=== PATIENT | male | born 1985 | race African-American/Black ===

== ENCOUNTER 2019-10-14 01:23 | Emergency (ER) | payer MEDICARE, MEDICAID ==
[~2019-10-14] VITALS: Ht 172.7 cm; Wt 97.0 kg
[2019-10-14] MEDS ORDERED: HALOPERIDOL LACTATE 5MG/ML VIAL IM STA (02:40)
[2019-10-14] MEDS ORDERED: LORAZEPAM 2MG/ML CPJ IM STA (02:40)
[2019-10-14 02:56] LABS: CLARITY URINE CLEAR (CLEAR); COLOR URINE YELLOW (YELLOW); KETONES URINE 3+ (NEGATIVE); LEUKOCYTE ESTERASE URINE NEGATIVE (NEGATIVE); NITRITE URINE NEGATIVE (NEGATIVE); OCCULT BLOOD URINE NEGATIVE (NEGATIVE); PROTEIN URINE TRACE (NEGATIVE); SPECIFIC GRAVITY URINE 1.019 (1.005-1.030)
[2019-10-14 03:03] LABS: CHLORIDE 102 mEq/L (98-107)
[2019-10-14 03:05] LABS: *AMPHETAMINES SCREEN URINE PRESUMTIVE POSITIVE (NEGATIVE); *BARBITURATES SCREEN URINE NEGATIVE (NEGATIVE); *BENZODIAZEPINES SCREEN URINE NEGATIVE (NEGATIVE); *COCAINE SCREEN URINE NEGATIVE (NEGATIVE); METHADONE URINE SCREEN NEGATIVE (NEGATIVE)
[2019-10-14 03:07] LABS: ETHANOL BLOOD < 10 mg/dL
[2019-10-14 03:07] LABS: CANNABINOID URINE SCREEN PRESUMTIVE POSITIVE (NEGATIVE); OPIATES URINE SCREEN NEGATIVE (NEGATIVE); PHENCYCLIDINE URINE SCREEN NEGATIVE (NEGATIVE)
[2019-10-14 03:15] LABS: BASOPHILS % 0.4 % (0.0-2.0); EOSINOPHILS % 0.5 % (0.0-5.0); HEMATOCRIT. 42.3 % (42.0-52.0); HEMOGLOBIN. 14.5 g/dL (14.0-18.0); LYMPHOCYTES % 17.9 % (20.0-50.0); MEAN CORPUSCULAR HEMOGLOBIN 28.9 pg (28.0-32.0); MEAN CORPUSCULAR VOLUME 84.3 fL (80.0-94.0); MEAN PLATELET VOLUME 8.1 fl (7.4-10.4); MONOCYTES % 11.5 % (2.0-8.0); NEUTROPHILS % 69.7 % (40.0-76.0); PLATELET 265 x1000/uL (130-400); RED BLOOD CELL COUNT 5.02 mill/uL (4.7-6.1); RED CELL DISTRIBUTION WIDTH 12.2 % (11.6-14.6)
[2019-10-14 03:22] LABS: CREATINE KINASE 1519 IU/L (39-308)
[2019-10-14] MEDS ORDERED: POTASSIUM CHLORIDE 20MEQ TABLET SR PO NR (04:45)
[2019-10-14] MEDS ORDERED: SODIUM CHLORIDE 0.9% 1,000 ML IV ONE ×2 (07:00)
[2019-10-15 15:30] VITALS: BP 137/89
== END 2019-10-15 16:00 ==
LOC: ER 01:23
DX: R44.0 Auditory hallucinations (principal); F15.90 Other stimulant use, unspecified, uncomplicated
CPT/HCPCS: 36415; 80053; 80305; 80320; 81003; 82550; 83690; 84132; 85025; 96372; 99285; J1630; J2060; J7030; G0480